=== PATIENT | female | born 1985 | race Caucasian/White ===

== ENCOUNTER 2019-12-17 13:33 | Outpatient (REF) | payer MEDICAID, SELFPAY | END 2019-12-17 13:53 | LOC: NCHCN 13:33 | PROVIDERS: PCP Internal Medicine; Visit Provider Nurse Practitioner Family | DX: N39.0 Urinary tract infection, site not specified (principal) | CPT/HCPCS: 87086 ==

== ENCOUNTER 2021-02-22 13:17 | Outpatient (REF) | payer MEDICAID, SELFPAY ==
[2021-02-22 15:45] LABS: Bilirubin Negative (Negative); Blood Negative (Negative); Clarity Clear (Clear); Glucose Negative (Negative); Ketones Negative (Negative); Leukocyte Esterase Trace (Negative); Nitrite Negative (Negative); Urobilinogen 0.2 EU/dL (Up TO 0.2); pH 5.5 (5-8)
[2021-02-22 16:00] LABS: Bacteria Negative HPF (Negative); C & S Indicated? Yes; Casts Negative LPF (Negative); Crystals Negative HPF (Negative); Epithelial Cells Rare HPF (Negative); Mucus Negative (Negative); RBC 0-2 HPF (0-2); WBC 0-2 HPF (0-5)
== END 2021-02-22 13:18 | disposition home or self-care (01) ==
LOC: NCHCN 13:17
PROVIDERS: PCP Internal Medicine; Visit Provider Nurse Practitioner Family
DX: R10.9 Unspecified abdominal pain (principal); R82.998 Other abnormal findings in urine
CPT/HCPCS: 81003; 81015; 87086

== ENCOUNTER 2021-07-10 17:02 | Outpatient (REF) | payer MEDICAID, SELFPAY ==
[2021-07-12 15:46] LABS: COVID-19 RT-PCR UVMMC Result Negative (Negative)
== END 2021-07-10 17:03 | disposition home or self-care (01) ==
LOC: NCHCN 17:02
PROVIDERS: PCP Internal Medicine; Visit Provider Nurse Practitioner Family
DX: Z20.822 Contact with and (suspected) exposure to COVID-19 (principal)
CPT/HCPCS: U0003

== ENCOUNTER 2022-04-05 15:37 | Outpatient (REF) | payer MEDICAID, SELFPAY | END 2022-04-05 15:38 | disposition home or self-care (01) | LOC: NCHCN 15:37 | PROVIDERS: PCP Internal Medicine; Visit Provider Physician Assistant | DX: N39.0 Urinary tract infection, site not specified (principal) | CPT/HCPCS: 87077; 87086; 87186 ==

== ENCOUNTER 2022-06-11 14:48 | Outpatient (REF) | payer MEDICAID, SELFPAY ==
--- NOTE | 2022-06-11 13:30 | PAPFT_PTH ---
PATIENT: Greer Villafuerte LOC: [facility] U#:[id number] AGE/SX: 36/F ROOM: RE06/11/[address]: Sophia Moreira DO : 1985 BED: DIS: 06/11/2022 SPEC #: [id number] RECD: 06/11/22 17:07 STATUS: ROSE REQ #: [id number] SIMI: 06/11/22 13:[address]: Sophia Moreira DEPT: [facility] Cytology RECD BY: Krystal Serrano ENTERED: 06/11/22 17:07 SP TYPE: PAPFT OTHR DR: Tej Lo Tissues: 1 - CX/ENDOCX FOR PAP SMEARS Procedures: PAP THIN PREP/[facility] Screening HPV DNA PROBE Comments: [id number] (HPV 16 & 18/45) (CHLAMYDIA/GC)
[2022-06-12 14:36] LABS: Chlamydia Result Negative (Negative); GC Result Negative (Negative)
== END 2022-06-11 14:49 | disposition home or self-care (01) ==
LOC: LBN 14:48
PROVIDERS: PCP Internal Medicine; Visit Provider Obstetrics & Gynecology
DX: Z12.4 Encounter for screening for malignant neoplasm of cervix (principal); R87.810 Cervical high risk human papillomavirus (HPV) DNA test positive; Z11.51 Encounter for screening for human papillomavirus (HPV); Z11.3 Encounter for screening for infections with a predominantly sexual mode of transmission
CPT/HCPCS: 87491; 87591; 88142; 87624

== ENCOUNTER → 2022-07-13 00:21 | Outpatient (CLI) | payer MEDICAID, SELFPAY ==
--- NOTE | 2022-07-13 06:45 | DI.US_ITS ---
Exam(s) US PELVIS TRANSVAGINAL EXAM: US PELVIS TRANSVAGINAL CLINICAL HISTORY: anatomy,menometrorrhagia,n92.1 TECHNIQUE: Ultrasound performed using standard protocol. COMPARISON: No exams were available for comparison FINDINGS: Pelvic ultrasound was performed transabdominally and transvaginally. Uterus measures 8.4 x 4.2 x 5.5 cm. Endometrial stripe is about 5 millimeters in thickness and appea rs homogeneous. No free fluid in the cul-de-sac. Right ovary measures 52 x 30 x 33 millimeters. Left ovary measures 43 x 38 x 41 millimeters. Right ovary contains a 29 millimeter in diameter simple cyst. Left ovary contains a mixed echogenicity 33 millimeter in diameter cystic/solid lesion, no internal f low on Doppler evaluation and this may represent a hemorrhagic cyst. Follow-up ultrasound recommended in 4-6 weeks to re-evaluate the left ovarian indeterminate mass. IMPRESSION: Left ovarian complex avascular mass, possible hemorrhagic cyst. Follow-up ultrasound requested in 4- 6 weeks to exclude neoplastic disease. DATA REPOSITORY:
== END ==
PROVIDERS: PCP Internal Medicine; Visit Provider Obstetrics & Gynecology
DX: N92.1 Excessive and frequent menstruation with irregular cycle (principal); R93.89 Abnormal findings on diagnostic imaging of other specified body structures
CPT/HCPCS: 76830; 76856

== ENCOUNTER 2022-07-17 15:35 | Outpatient (REF) | payer MEDICAID, SELFPAY ==
[2022-07-18 14:44] LABS: Chlamydia Result Negative (Negative); GC Result Negative (Negative)
== END 2022-07-17 15:36 | disposition home or self-care (01) ==
LOC: LBN 15:35
PROVIDERS: PCP Internal Medicine; Visit Provider Obstetrics & Gynecology
DX: Z11.3 Encounter for screening for infections with a predominantly sexual mode of transmission (principal)
CPT/HCPCS: 87491; 87591

== ENCOUNTER → 2022-08-09 03:17 | Outpatient (CLI) | payer MEDICAID, SELFPAY ==
--- NOTE | 2022-08-09 08:15 | DI.US_ITS ---
Exam(s) US PELVIS TRANSVAGINAL EXAM: US PELVIS TRANSVAGINAL CLINICAL HISTORY: re-check OVARIAN CYSTS, MENOMRORRHAGIA, N92.1,N83.209. TECHNIQUE: Transabdominal and transvaginal pelvic ultrasound was performed using standard protocol. COMPARISON: US US PELVIS TRANSVAGINAL from 07/13/2022 FINDINGS: UTERUS: Position: Anteverted. Size: 8.3 long by 4.4 AP by 4.8 transverse cm Endometrium: 0.4 cm. Normal for patient's menstrual status. The IUD is in good position. Myometrium: Unremarkable. Cervix: Unremarkable. OVARIES: Right: 3.9 x 2.6 x 2.5 cm Cyst or mass: No suspicious cystic or solid masses. The largest simple cyst measures 2.1 cm. This i s likely physiologic. Left: 3.7 x 2.3 x 2.5 cm Cyst or mass: No suspicious cystic or solid masses. The previously seen complex cyst is resolved. DOPPLER: Color: Symmetric and uniform flow to both ovaries. CUL-DE-SAC: Free fluid: None. Other: None. IMPRESSION: 1. Resolution of the complex left ovarian cyst. No suspicious ovarian cysts. 2. Normal-appearing uterus with endometrial stripe within normal limits. 3. Unremarkable bilateral ovaries. DATA REPOSITORY:
== END ==
PROVIDERS: PCP Internal Medicine; Visit Provider Obstetrics & Gynecology
DX: N83.202 Unspecified ovarian cyst, left side (principal); N92.1 Excessive and frequent menstruation with irregular cycle
CPT/HCPCS: 76830; 76856

== ENCOUNTER 2022-12-10 19:04 | Outpatient (REF) | payer MEDICAID, SELFPAY ==
[2022-12-10 19:30] LABS: Bilirubin Negative (Negative); Blood Negative (Negative); Clarity Clear (Clear); Glucose Negative (Negative); Ketones Negative (Negative); Leukocyte Esterase Small (Negative); Nitrite Negative (Negative); Urobilinogen 0.2 mg/dL (Up to 0.2)
[2022-12-10 19:34] LABS: Bacteria Few HPF (Negative); C & S Indicated? Yes; Casts Negative LPF (Negative); Crystals Negative HPF (Negative); Epithelial Cells Few HPF (Negative); Mucus Negative (Negative); RBC 0-2 HPF (0-2)
== END 2022-12-10 19:05 | disposition home or self-care (01) ==
LOC: NCHCN 19:04
PROVIDERS: PCP Internal Medicine; Visit Provider Nurse Practitioner Family
DX: R30.0 Dysuria (principal)
CPT/HCPCS: 81003; 81015; 87086

== ENCOUNTER 2023-02-22 16:51 | Outpatient (REF) | payer MEDICAID, SELFPAY ==
[2023-02-22 18:59] LABS: Abs Immature Grans 0.03 10^3/uL (0.0-0.06); Absolute Basophil Count 0.08 10^3/uL (0.0-0.2); Absolute Eosinophil Count 0.16 10^3/uL (0.0-0.7); Absolute Lymphocyte Count 2.79 10^3/uL (1.2-3.4); Absolute Neutrophil Count 5.84 10^3/uL (1.2-6.7); Basophils % 0.8; Eosinophils % 1.6; HCT 41.6 % (36.0-46.0); Immature Grans % 0.3; Lymphocytes % 27.9; MCH 29.4 pg (27.0-33.0); MCHC 33.7 % (32.0-36.0); MCV 87 fL (80-95); Neutrophils % 58.4; Platelet Count 252 10^3/uL (130-400); RBC 4.76 10^6/uL (3.93-5.22); RDW 13.5 % (11.7-14.6); RDW-SD 43.7 fL
[2023-02-22 19:41] LABS: ALT 26 U/L (14-59); AST 19 U/L (15-37); Albumin 3.7 g/dL (3.4-5.0); Alkaline Phosphatase 86 U/L (46-116); Anion Gap 8.2 mmol/L (3-11); BUN 21 mg/dL (7-18); Bilirubin, Total 0.3 mg/dL (0.2-1.0); CO2 26.8 mmol/L (21.0-32.0); Calcium 8.4 mg/dL (8.5-10.1); Chloride 103 mmol/L (98-107); Estimated GFR 75.34 (mL/min/1.73m2); Glucose 99 mg/dL (74-106); Potassium 3.8 mmol/L (3.5-5.1); Sodium 138 mmol/L (136-145); Total Protein 7.3 g/dL (6.4-8.2)
== END 2023-02-22 16:52 | disposition home or self-care (01) ==
LOC: NCHCN 16:51
PROVIDERS: PCP Internal Medicine; Visit Provider Physician Assistant
DX: R10.31 Right lower quadrant pain (principal); N39.0 Urinary tract infection, site not specified
CPT/HCPCS: 80053; 85025; 87086

== ENCOUNTER → 2023-07-18 03:45 | Outpatient (CLI) | payer MEDICAID, SELFPAY ==
--- NOTE | 2023-07-18 09:00 | DI.US_ITS ---
Exam(s) US PELVIS TRANSVAGINAL EXAM: US PELVIS TRANSVAGINAL CLINICAL HISTORY: anatomy and IUD location, MENOMETRORRHAGIA, N92.1, Z87.42 TECHNIQUE: Ultrasound of the pelvis was performed both transabdominal and transvaginal. COMPARISON: US US PELVIS TRANSVAGINAL from 08/09/2022 FINDINGS: UTERUS: Nongravid and anteverted. There is an IUD which is in satisfactory position in the endometri al canal. Uterus measures 7.9 cm length x 4.1 cm AP x 4.4 cm wide. There are no uterine fibroids. Endometrial thickness measures 3 mm. There is no fluid in the endometrial canal. CERVIX: There are no obvious nabothian cysts. RIGHT OVARY: Measures 3.6 x 3.0 x 1.5 cm No significant cysts nor masses evident in the right ovary. LEFT OVARY: Measures 2.8 x 1.7 x 2.9 cm No significant cysts nor masses evident in the left ovary. CUL-DE-SAC: No free fluid evident. IMPRESSION: 1. IUD is in satisfactory position in the endometrial canal. There are no abnormal uterine findings. No fluid in the endometrial canal. 2. No abnormal ovarian findings. Both ovaries contain age-appropriate sub cm follicular cysts but no abnormal cysts nor solid lesions. 3. No free fluid evident in the adnexal regions and cul-de-sac. DATA REPOSITORY:
== END ==
PROVIDERS: PCP Internal Medicine; Visit Provider Obstetrics & Gynecology
DX: N92.1 Excessive and frequent menstruation with irregular cycle (principal); Z87.42 Personal history of other diseases of the female genital tract
CPT/HCPCS: 76830; 76856

== ENCOUNTER 2023-08-22 12:19 | Outpatient (REF) | payer MEDICAID, SELFPAY | END 2023-08-22 12:20 | disposition home or self-care (01) | LOC: NCHCN 12:19 | PROVIDERS: PCP Internal Medicine; Visit Provider Physician Assistant | DX: J02.9 Acute pharyngitis, unspecified (principal) | CPT/HCPCS: 87081 ==